=== PATIENT | female | born 1945 | race Caucasian/White ===

== ENCOUNTER 2017-06-15 09:05 | Outpatient (CLI) | payer MEDICARE ==
[2017-06-15 17:51] LABS: ALBUMIN 4.1 g/dL (3.2-5.5); ALKALINE PHOSPHATASE 48 IU/L (42-121); ALT ALANINE AMINOTRANSFERASE 22 IU/L (10-60); AST ASPARTATE AMINOTRANSFERASE 26 IU/L (10-42); BILIRUBIN,DIRECT 0.2 mg/dL (0.1-0.5); BILIRUBIN,TOTAL 0.8 mg/dL (0.2-1.0); CHOLESTEROL 193 mg/dL; HDL CHOLESTEROL 95 mg/dL; LDL CHOLESTEROL,CALCULATED 83 mg/dL; LDL/HDL RATIO 0.9 (<4.4); TOTAL PROTEIN 7.1 g/dL (6.7-8.2); VLDL CHOLESTEROL 15 mg/dL
== END 2017-06-15 09:06 | disposition home or self-care (01) ==
LOC: LAB.F 09:05
PROVIDERS: ATTEND Internal Medicine Cardiovascular Disease
DX: I25.111 Atherosclerotic heart disease of native coronary artery with angina pectoris with documented spasm (principal); Z79.899 Other long term (current) drug therapy
CPT/HCPCS: 36415; 80061; 80076; 83721; 84443

== ENCOUNTER 2018-03-09 08:54 | Outpatient (CLI) | payer MEDICARE | END 2018-03-09 08:55 | disposition short-term general hospital (02) | LOC: EMS 08:54 | PROVIDERS: ATTEND Surgery | DX: R09.89 Other specified symptoms and signs involving the circulatory and respiratory systems (principal) | CPT/HCPCS: A0425; A0427 ==

== ENCOUNTER 2021-05-19 16:52 | Emergency (ER) | payer BC, MEDICARE ==
[2021-05-19 17:42] LABS: BASOPHILS % (AUTO) 0.4 %; EOSINOPHILS # (AUTO) 0.1 10^3/uL (0.0-0.7); EOSINOPHILS % (AUTO) 0.7 %; HCT - HEMATOCRIT 40.8 % (37.0-47.0); HGB - HEMOGLOBIN 13.7 g/dL (12.0-16.0); LYMPHOCYTES # (AUTO) 1.9 10^3/uL (1.5-3.5); LYMPHOCYTES % (AUTO) 21.1 %; MEAN CORPUSCULAR HEMOGLOBIN 30.6 pg (27.0-31.0); MEAN CORPUSCULAR HGB CONC 33.6 g/dL (32.0-36.0); MEAN CORPUSCULAR VOLUME 91.3 fL (81.0-99.0); MEAN PLATELET VOLUME 9.1 fL (7.9-10.8); MONOCYTES # (AUTO) 0.7 10^3/uL (0.0-1.0); MONOCYTES % (AUTO) 8.2 %; NEUTROPHILS # (AUTO) 6.2 10^3/uL (1.5-6.6); NEUTROPHILS % (AUTO) 69.4 %; PLT - PLATELET COUNT 258 10^3/uL (130-450); RED BLOOD COUNT 4.47 10^6/uL (4.20-5.40); RED CELL DISTRIBUTION WIDTH 12.3 % (12.0-15.0); WHITE BLOOD COUNT 8.9 x10^3/uL (4.8-10.8)
[2021-05-19 17:56] LABS: ALBUMIN 4.3 g/dL (3.2-5.5); ALBUMIN/GLOBULIN RATIO 1.4 (1.0-2.2); BILIRUBIN,TOTAL 0.6 mg/dL (0.2-1.0); CALCIUM 9.6 mg/dL (8.5-10.3); CREATININE 0.7 mg/dL (0.4-1.0); POTASSIUM 4.1 mmol/L (3.5-5.0); TOTAL PROTEIN 7.3 g/dL (6.7-8.2)
--- NOTE | 2021-05-19 18:05 | XRAY Report ---
PROCEDURE: Chest 1 View X-Ray INDICATIONS: Chest Pain TECHNIQUE: One view of the chest was acquired. COMPARISON: Chest x-ray report, 04/11/2012. FINDINGS: Surgical changes and devices: None. Lungs and pleura: No pleural effusions or pneumothorax. Lungs are clear. Mediastinum: Mediastinal contours appear normal. Heart size is normal. Tortuous aorta. Bones and chest wall: No suspicious bony lesions. Overlying soft tissues appear unremarkable. IMPRESSION: No acute cardiopulmonary disease. Reviewed by: Therese Swain MD on 05/19/2021 6:04 PM PST Approved by: Therese Swian MD on 05/19/2021 6:04 PM [facility] Station ID: [id number]
--- NOTE | 2021-05-19 18:23 | ED Physician Documentation ---
History of Present Illness - Stated complaint Stated Complaint: RAPID HR/DIZZY/CHEST PAIN - Chief complaint Chief Complaint: Cardiac - History obtained from History obtained from: Patient - History of Present Illness Timing: Today Pain level max: 2 Pain level now: 1 - Additonal information Additional information: 75-year-old female presents to the emergency department stating she felt like she had an episode of atrial fibrillation today. Has a history of same. She states she felt a tightness in her chest and palpitations. This lasted for a few hours. She states that she was not going to come in but thought she should get checked. This occurred about 10 hours prior to arrival. Currently asymptomatic. Nothing makes it better or worse. She has been taking all of her medications as prescribed. Review of Systems Ten Systems: 10 systems reviewed and negative Constitutional: denies: Fever, Chills Throat: denies: Sore throat Cardiac: denies: Calf pain GI: denies: Vomiting, Diarrhea Skin: denies: Rash Musculoskeletal: denies: Neck pain, Back pain Neurologic: denies: Headache PD PAST MEDICAL HISTORY - Past Medical History Past Medical History: Yes Cardiovascular: Hypertension, Atrial fibrillation - Allergies Allergies/Adverse Reactions: Allergies Allergy/AdvReac Type Severity Reaction Status Date / Time latex Allergy Rash Verified 05/19/21 17:04 lisinopril Allergy Unknown Verified 05/19/21 17:04 - Living Situation Living Arrangement: reports: At home - Social History Does the pt smoke?: No Does the pt have substance abuse?: No PD ED PE NORMAL - Vitals Vital signs reviewed: Yes - General General: Alert and oriented X 3, No acute distress, Well developed/nourished - HEENT HEENT: Moist mucous membranes - Neck Neck: Supple, no meningeal sign - Cardiac Cardiac: RRR, Strong equal pulses - Respiratory Respiratory: No respiratory distress, Clear bilaterally - Abdomen Abdomen: Soft, Non tender, Non distended - Derm Derm: Warm and dry - Extremities Extremities: No edema, No calf tenderness / cord - Neuro Neuro: Alert and oriented X 3 - Psych Psych: Normal mood, Normal affect Results - Vitals Vitals: Vital Signs - 24 hr 05/19/21 05/19/21 16:57 18:24 Temperature 36.0 C L Heart Rate 71 69 Respiratory 16 17 Rate Blood Pressure 145/85 H 128/73 O2 Saturation 100 100 Oxygen O2 Source Room air - EKG (time done) 1703 Rate: Rate (enter#) (68) Rhythm: NSR Stafford: Normal Intervals: Normal DE, Wide QRS, RBBB Ischemia: Normal ST segments, Q waves (II, III, aVF) - Labs Labs: Laboratory Tests 05/19/21 05/19/21 05/19/21 17:38 17:38 17:38 WBC 8.9 RBC 4.47 Hgb 13.7 Hct 40.8 MCV 91.3 MCH 30.6 MCHC 33.6 RDW 12.3 Plt Count 258 MPV 9.1 Neut # (Auto) 6.2 Lymph # (Auto) 1.9 [place] # (Auto) 0.7 Eos # (Auto) 0.1 Baso # (Auto) 0.0 Absolute Nucleated RBC 0.00 Nucleated RBC % 0.0 Sodium 130 L Potassium 4.1 Chloride 94 L Carbon Dioxide 27 Anion Gap 9.0 BUN 12 Creatinine 0.7 Estimated GFR (MDRD) 82 L Glucose 104 H Calcium 9.6 Total Bilirubin 0.6 AST 28 ALT 25 Alkaline Phosphatase 48 Troponin I High Sens 13.4 Total Protein 7.3 Albumin 4.3 Globulin 3.0 Albumin/Globulin Ratio 1.4 Lipase 50 - Rads (name of study) cxr Radiology: Final report received, EMP read contemporaneously, See rad report PD MEDICAL DECISION MAKING - ED course Complexity details: reviewed results, re-evaluated patient, considered differential (No ST elevation MS, no aortic dissection, no PE, no tension pneumothorax, no aortic aneurysm), d/w patient ED course: Patient with no evidence of acute MS. No evidence of acute coronary syndrome. Negative troponin after greater than 6 hours of symptoms. Her A. fib is controlled. Patient counseled regarding signs and symptoms for which I believe and urgent re-evaluation would be necessary. Patient with good understanding of and agreement to plan and is comfortable going home at this time counseled This document was made in part using voice recognition software. While efforts are made to proofread this document, sound alike and grammatical errors may occur. Departure - Departure Disposition: Home, Self Care Clinical Impression: Atrial fibrillation Qualifiers: Atrial fibrillation type: unspecified Qualified Code(s): I48.91 - Unspecified atrial fibrillation Chest pain Qualifiers: Chest pain type: unspecified Qualified Code(s): R07.9 - Chest pain, unspecified Condition: Good Instructions: ED Afib, ED Chest Pain Atypical Unkn Cause Follow-Up: Lynne Rockwell MD [Primary Care Provider] - Within 1 week Comments: Continue your current medication at home. Return if you worsen. Follow-up with your doctor for further care. Discharge Date/Time: 05/19/21 18:49
[2021-05-19 18:27] VITALS: BP 128/73
== END 2021-05-19 18:49 | disposition home or self-care (01) ==
LOC: ED 16:52
DX: I48.91 Unspecified atrial fibrillation (principal); R07.89 Other chest pain; I45.10 Unspecified right bundle-branch block; I10 Essential (primary) hypertension
CPT/HCPCS: 36415; 80053; 83690; 84484; 85025; 93005; 99284

== ENCOUNTER 2021-06-12 08:52 | Outpatient (CLI) | payer MEDICARE ==
[2021-06-12 15:50] LABS: CREATININE 0.8 mg/dL (0.4-1.0); POTASSIUM 3.8 mmol/L (3.5-5.0)
== END 2021-06-12 08:53 | disposition home or self-care (01) ==
LOC: LAB.S 08:52
PROVIDERS: ATTEND Internal Medicine
DX: I12.9 Hypertensive chronic kidney disease with stage 1 through stage 4 chronic kidney disease, or unspecified chronic kidney disease (principal); N18.31 Chronic kidney disease, stage 3a; E22.2 Syndrome of inappropriate secretion of antidiuretic hormone
CPT/HCPCS: 36415; 80048

== ENCOUNTER 2024-01-07 04:29 | Outpatient (CLI) | payer MEDICARE | END 2024-01-07 22:41 | disposition critical access hospital (66) | LOC: EMS 04:29 | DX: M25.572 Pain in left ankle and joints of left foot (principal); W11.XXXA Fall on and from ladder, initial encounter; Y92.008 Other place in unspecified non-institutional (private) residence as the place of occurrence of the external cause | CPT/HCPCS: A0425; A0429 ==

== ENCOUNTER 2024-01-07 05:04 | Emergency (ER) | payer MEDICARE ==
--- NOTE | 2024-01-07 05:05 | ED Physician Documentation ---
PD HPI Fall - Stated complaint Stated Complaint: FELL OFF LADDER, LEFT ANKLE PAIN - History obtained from History obtained from: Patient, EMS - History of Present Illness Contributing factors: Anticoagulated - Additional information Additional information: DAMIEN. Patient was descending a ladder in her home at approximately 2 AM this morning (climbing back down from a loft) when she lost her footing causing her to fall from a height of approximately 3 feet. She says she landed flat on her feet, predominantly the left heel, and complains of sudden onset of severe left foot and ankle pain. She says she has been unable to bear any weight on the left lower extremity since falling. She was able to get around using crutches she has at home from a previous foot injury. She also struck her head against the ladder after she hit the ground, but denies LOC, headache, neck pain, back pain. Her prescription medications include Xarelto. PD PAST MEDICAL HISTORY - Past Medical History Past Medical History: Yes Cardiovascular: DC, Atrial fibrillation - Present Medications Home Medications: Ambulatory Orders Medication Instructions Recorded Confirmed HYDROcod/ACETAM 5/325 [Benson 5/325] 1 - 2 tablet PO Q6H PRN #14 tablet 01/07/24 - Allergies Allergies/Adverse Reactions: Allergies Allergy/AdvReac Type Severity Reaction Status Date / Time latex Allergy Rash Verified 01/07/24 05:09 lisinopril Allergy Unknown Verified 01/07/24 05:09 PD ED PE NORMAL - Vitals Vital signs reviewed: Yes - General General: Alert and oriented X 3, No acute distress (NAD at rest), Well developed/nourished - HEENT HEENT: Atraumatic, PERRL, EOMI - Neck Neck: No bony TTP - Cardiac Cardiac: RRR, No murmur - Respiratory Respiratory: No respiratory distress, Clear bilaterally - Abdomen Abdomen: Soft, Non tender - Back Back: No spinal TTP - Derm Derm: Normal color, Warm and dry - Neuro Neuro: Alert and oriented X 3, Normal speech Eye Opening: Spontaneous Motor: Obeys Commands Verbal: Oriented GCS Score: 15 PD ED PE EXPANDED - Extremities Extremities: Tenderness, Limited ROM, Pedal Pulses Present, Other (exquisite TTP of left hindfoot and ankle with limited ROM left ankle due to pain with any movement) Results - Vitals Vitals: Vital Signs - 24 hr 01/07/24 09:29 Heart Rate 83 Respiratory 18 Rate Blood Pressure 128/72 O2 Saturation 96 Oxygen O2 Source Room air - Rads (name of study) CTH Relevant Findings:: Prelim report reviewed, See rad report left ankle xrays Relevant Findings:: Prelim report reviewed, See rad report left foot xrays Relevant Findings:: Prelim report reviewed, See rad report CT left calcaneus Relevant Findings:: Prelim report reviewed, See rad report PD Medical Decision Making - ED course Complexity details: reviewed results, re-evaluated patient, considered differential, d/w patient ED course: Unremarkable findings on CT head. Plan-film x-rays of the left ankle/foot demonstrate comminuted calcaneal fracture, further characterized by CT of the left calcaneus. Patient is given 2 tablets p.o. Vicodin early in ED stay with good analgesia (both visibly as well as by patient report). I discussed this case, along with the findings on the imaging, with Dr. Jett (on-call orthopedic surgeon for [facility]). He subsequently reviewed the radiology studies, including the CT of the calcaneus. He then recontacted me and confirms patient is safe and appropriate for D/C home, needs to adhere strictly to not- weightbearing status, and follow-up with orthopedics in the outpatient setting. Dr. Haskins says he can reevaluate the patient in his office within the coming week. I discussed the results, diagnosis, prognosis, and follow-up recommendations with the patient. She expresses understanding of, and comfort with, this plan. A bulky left lower extremity short leg splint is placed by ED RN, crutches are provided along with instruction on proper use. She is also provided with the contact information for Dr. Jett. I have electronically submitted a prescription for Vicodin to patient's pharmacy of choice. I am prescribing a short course of narcotic pain medication for you. These are potentially dangerous and addictive medications that should be used carefully. These medications may constipate you. Take an uivf-fuj-yxqlskn stool softener (docusate) twice daily with plenty of water while taking these medications. If you go 24 hours without a bowel movement, take fekj-svp-zocqcve miralax, per package instructions. Do not drink or drive while taking these medications. If you received narcotic or sedating medications while in the emergency department, do not drive for 24 hours. Store this medication in a safe, secure place and out of reach of children. It is a violation of federal law to give or sell this medication to another person or to use in a manner other than prescribed. The ED will not refill narcotic prescriptions, including prescriptions lost or stolen. To dispose of unwanted medications: 1. [facility] at [address] in [place] has a medication drop box. They accept prescription medications (in pill form) Thursday through Thursday 9:00 a.m. to 5:00 p.m. 2. [facility] [employer] accepts prescription medications (in pill form only) for disposal year round. Call for more information. 3. Contact the [facility] for the next [facility] sponsored prescription drug collection event. , [id number], or [phone]; Departure - Departure Disposition: 01 Home, Self Care Clinical Impression: Calcaneal fracture Qualifiers: Encounter type: initial encounter Calcaneus location: unspecified portion of calcaneus Fracture type: closed Fracture alignment: displaced Laterality: left Qualified Code(s): S92.002A - Unspecified fracture of left calcaneus, initial encounter for closed fracture Condition: Good Instructions: ED Crutch Walking, ED Fx Foot Follow-Up: Genaro Jett MD [Provider Admit Priv/Credential] - Prescriptions: HYDROcod/ACETAM 5/325 [Benson 5/325] 1 - 2 tablet PO Q6H PRN #14 tablet PRN Reason: Pain Comments: The xrays and CT scan of your foot demonstrate a fracture of your left calcaneus ("heel bone"). You need to adhere strictly to non-weight bearing (using crutches) until you are told otherwise by an orthopedic surgeon. I discussed your case with the on-call orthopedic surgeon (Dr. Jett); his contact information is within these discharge instructions (office address and phone number). Contact his office this morning to arrange for follow-up appointment. He would like to reevaluate you in his office within a week. I have electronically submitted a prescription for Vicodin (narcotic/opiate pain medication) to the [facility] in [place]. I am prescribing a short course of narcotic pain medication for you. These are potentially dangerous and addictive medications that should be used carefully. These medications may constipate you. Take an hqno-orc-lxdqqqz stool softener (docusate) twice daily with plenty of water while taking these medications. If you go 24 hours without a bowel movement, take sduo-ayo-jxtamqi miralax, per package instructions. Do not drink or drive while taking these medications. If you received narcotic or sedating medications while in the emergency department, do not drive for 24 hours. Store this medication in a safe, secure place and out of reach of children. It is a violation of federal law to give or sell this medication to another person or to use in a manner other than prescribed. The ED will not refill narcotic prescriptions, including prescriptions lost or stolen. To dispose of unwanted medications: 1. [facility] at [address] in [place] has a medication drop box. They accept prescription medications (in pil l form) Thursday through Thursday 9:00 a.m. to 5:00 p.m. 2. [facility] [employer] [facility] accepts prescription medications (in pill form only) for disposal year round. Call for more information. 3. Contact the [facility] for the next [facility] sponsored prescription drug collection event. , [phone], or [phone]; Discharge Date/Time: 01/07/24 09:35
[2024-01-07] MEDS: HYDROcod/ACETAM 5/325 MG TABLET PO STA (05:29)
--- NOTE | 2024-01-07 07:45 | CT Report ---
PROCEDURE: Head WO INDICATIONS: fall, head injury, takes xarelto TECHNIQUE: Noncontrast 4.5 mm thick angled axial sections acquired from the foramen magnum to the vertex. For r adiation dose reduction, the following was used: automated exposure control, adjustment of mA and/or kV according to patient size. COMPARISON: None. FINDINGS: Image quality: Excellent. CSF spaces: Basal cisterns are patent. No extra-axial fluid collections. Ventricles are normal in size and shape. Brain: No midline shift. No intracranial masses or hemorrhage. Serna-white matter interface is norm al. Intracranial carotid calcifications. Age-related volume loss and moderate to severe small vessel ischemic change. Skull and face: Calvarium and visualized facial bones are intact, without suspicious lesions. Sinuses: Visualized sinuses and mastoids are clear. IMPRESSION: No acute intracranial pathology. Age-related volume loss and moderate to severe small vessel ischemic change. Findings are concordant with preliminary interpretation provided by [facility]. Reviewed by: Eyad Bhakta MD on 01/07/2024 7:44 AM PDT Approved by: Eyad Bhakta MD on 01/07/2024 7:44 AM PDT Station ID: [id number]
--- NOTE | 2024-01-07 08:57 | CT Report ---
PROCEDURE: Lower Extremity LT WO INDICATIONS: calcaneus fracture on plain-films TECHNIQUE: Noncontrast 3-mm axial sections acquired from the distal tibial shaft to the talar dome, with coronal and sagittal reformats. For radiation dose reduction, the following was used: automated exposure c ontrol, adjustment of mA and/or kV according to patient size. COMPARISON: Left ankle radiographs 01/07/2024 FINDINGS: Image quality: Excellent. Bones: Comminuted fracture of the calcaneus with mildly displaced fracture fragments. No longitudina l fracture plane is seen involving the posterior subtalar facet. Nondisplaced coronal fracture plane is seen at the angle of Glissane. Mildly displaced calcaneal tuberosity components. Small chronic-meng earing osteochondral lesion at the lateral talar dome measuring up to 9 x 4 x 3 mm with subchondral c ystic changes but no disruption of the subchondral plate. The remaining visualized osseous structures are intact. Plantar calcaneal enthesophyte is present. Soft tissues: Moderate tibiotalar effusion. Soft tissue edema is seen surrounding the ankle and hind foot. The Achilles tendon appears thickened compatible with tendinosis. Achilles tendon inserts onto to separate calcaneal fracture fragments. However, the articular cartilages, ligaments, and tendons a re not well evaluated with CT. IMPRESSION: Comminuted mildly displaced fracture of the calcaneus without involvement of the posterior subtalar f acet. There is no significant discrepancy when compared with the preliminary overnight report. Reviewed by: Yuri David MD on 01/07/2024 8:56 AM PDT Approved by: Yuri David MD on 01/07/2024 8:56 AM PDT Station ID: [id number]
--- NOTE | 2024-01-07 08:59 | XRAY Report ---
PROCEDURE: Ankle 3+V LT INDICATIONS: fall, left ankle pain TECHNIQUE: 3 views of the ankle were acquired. COMPARISON: None. FINDINGS: Bones: Linear lucencies are seen within the calcaneus compatible with a comminuted fracture. There i s flattening of Boehler's angle. No additional osseous fracture identified. Soft tissues: Moderate tibiotalar joint effusion. Soft tissue edema seen surrounding the ankle and hindfoot. IMPRESSION: Comminuted mildly displaced fracture of the calcaneus. There is no significant discrepancy when compared with the preliminary overnight report. Reviewed by: Yuri David MD on 01/07/2024 8:57 AM PDT Approved by: Yuri David MD on 01/07/2024 8:57 AM PDT Station ID: [id number]
--- NOTE | 2024-01-07 09:00 | XRAY Report ---
PROCEDURE: Foot 3+V LT INDICATIONS: fall, left foot pain TECHNIQUE: 3 views of the foot were acquired. COMPARISON: None. FINDINGS: Bones: Comminuted mildly displaced fracture of the calcaneus. Possible hammertoe deformities in the 2 nd and 3rd toes are not well evaluated with nonweightbearing radiographs. Mild healed fracture deform ity in the 3rd metatarsal shaft. Generalized osteopenia. Soft tissues: Soft tissue edema seen surrounding the ankle and hindfoot. Tibiotalar effusion is prese nt. IMPRESSION: Comminuted mildly displaced fracture of the calcaneus. There is no significant discrepancy when compared with the preliminary overnight report. Reviewed by: Yuri David MD on 01/07/2024 8:58 AM PDT Approved by: Yuri David MD on 01/07/2024 8:58 AM PDT Station ID: [id number]
[2024-01-07 09:36] VITALS: BP 128/72; O2SAT 96
== END 2024-01-07 09:35 | disposition home or self-care (01) ==
LOC: EDUNIT# → ED 05:04
DX: S92.002A Unspecified fracture of left calcaneus, initial encounter for closed fracture (principal); S09.90XA Unspecified injury of head, initial encounter; W11.XXXA Fall on and from ladder, initial encounter; Y92.009 Unspecified place in unspecified non-institutional (private) residence as the place of occurrence of the external cause
CPT/HCPCS: 70450; 73610; 73630; 73700; 99284; A9270